=== PATIENT | male | born 1980 | race Caucasian/White ===

== ENCOUNTER 2016-07-03 12:00 | Emergency (ER) | payer OTHER | END 2016-07-03 14:45 | disposition left against medical advice (07) | LOC: UCCORT 12:00 | DX: S99.921A Unspecified injury of right foot, initial encounter (principal); X58.XXXA Exposure to other specified factors, initial encounter; Z88.0 Allergy status to penicillin; Z91.030 Bee allergy status; Z53.9 Procedure and treatment not carried out, unspecified reason ==

== ENCOUNTER 2017-04-05 16:54 | Emergency (ER) | payer OTHER ==
--- NOTE | 2017-04-05 18:01 | UC ---
HPI Febrile Illness - HPI Summary HPI Summary: 36 year old male presents with flu like symptoms. - History of Current Complaint Time Seen by Provider: 04/05/17 18:01 Hx Obtained From: Patient Onset/Duration: Started Hours Ago Timing: Constant Initial Severity: Moderate Current Severity: Moderate - Allergy/Home Medications Allergies/Adverse Reactions: Allergies Allergy/AdvReac Type Severity Reaction Status Date / Time Bee Venom Allergy Selling, Verified 04/05/17 18:12 Difficulty Breathing Penicillins Allergy Difficulty Verified 04/05/17 18:12 Breathing Home Medications: Home Medications Venlafaxine EXT RELEASE CAP* [Effexor Xr CAP*] 300 mg PO DAILY 04/05/17 [ History Confirmed 04/05/17] cloNIDine TAB* [Catapres 0.1 MG TAB*] 0.1 mg PO DAILY 04/05/17 [History Confirmed 04/05/17] PMH/Surg Hx/FS Hx/Imm Hx Previously Healthy: Yes - Surgical History Surgical History: Yes Surgery Procedure, Year, and Place: [place] x 4 as a child. Testicle Torsion Repair, 1991, [place]. Appendectomy, 2002, [place] - Family History Known Family History: Positive: None, Unknown - Social History Alcohol Use: Rare Substance Use Type: None Smoking Status (MU): Never Smoked Tobacco - Immunization History Most Recent Influenza Vaccination: none Review of Systems Constitutional: Negative Skin: Negative Eyes: Negative ENT: Sinus Congestion, Sinus Pain/Tenderness Respiratory: Negative Cardiovascular: Negative Gastrointestinal: Negative Genitourinary: Negative Motor: Negative Neurovascular: Negative Musculoskeletal: Negative Neurological: Negative Psychological: Negative All Other Systems Reviewed And Are Negative: Yes Physical Exam Triage Information Reviewed: Yes Appearance: Ill-Appearing Vital Signs Reviewed: Yes Eye Exam: Normal ENT: Positive: Nasal congestion, Nasal drainage, Sinus tenderness Dental Exam: Normal Neck exam: Normal Neck: Positive: 1 Respiratory Exam: Normal Cardiovascular Exam: Normal Abdominal Exam: Normal Musculoskeletal Exam: Normal Neurological Exam: Normal Psychological Exam: Normal Skin Exam: Normal Course/Dx - Diagnoses Clinic Provider Diagnoses: body aches. fever. chills. fatigue Discharge - Discharge Plan Condition: Stable Disposition: HOME Prescriptions: Azithromyxin RENALDO (NF) [Z-Renaldo (Zithromax) 250 mg tabs #6] 2 tab PO .TODAY, THEN 1 DAILY #6 tab Methylprednisolone [Medrol Dosepak 4 MG*] 4 mg PO .SEE RENALDO INSTRUCTION #21 tab Patient Education Materials: Sinusitis (ED) Forms: *Work Release Referrals: Reyna Parsons MD [Primary Care Provider] -
[2017-04-05 18:11] VITALS: BP 120/76
== END 2017-04-05 18:53 | disposition home or self-care (01) ==
LOC: UCCORT 16:54
DX: M79.1 Myalgia (principal); R50.9 Fever, unspecified; R53.83 Other fatigue; Z88.0 Allergy status to penicillin; Z91.030 Bee allergy status; Z90.89 Acquired absence of other organs
CPT/HCPCS: 87502; 99212; G0463

== ENCOUNTER 2017-08-31 16:25 | Emergency (ER) | payer OTHER ==
[2017-08-31] MEDS ORDERED: Tetan/Diph/Pertus SYR(Tdap)* 0.5 ML SYR(BOOSTRIX) use SYR IM ONE (18:07)
--- NOTE | 2017-08-31 18:10 | UC ---
Bite Injury/Animal HPI - HPI Summary HPI Summary: Patient comes in tonight with a dog bite to his right hand. He has a 5 mm laceration on the radial aspect of his wrist and a puncture wound to the dorsum of his hand. neuro motor and circulation intact distally there is no active bleeding. The dog belongs to a friend of his and is available for observation - History of Current Complaint Chief Complaint: UCBiteInjury Stated Complaint: CUT ON RT HAND Time Seen by Provider: 08/31/17 17:57 Hx Obtained From: Patient Severity Currently: Mild Severity Initially: Mild Pain Intensity: 3 Pain Scale Used: 0-10 Numeric Onset/Duration: Sudden Onset Type of Bite: Pet Has Animal Been Immunized?: Yes Character: Puncture Aggravating Factor(s): Other Alleviating Factor(s): Other Associated Signs And Symptoms: Positive: Negative Hx of Bite: Provoked by: - entered to owners home Animal Available for Observation: Yes Animal Control Notified: Yes - Allergies/Home Medications Allergies/Adverse Reactions: Allergies Allergy/AdvReac Type Severity Reaction Status Date / Time MS Bee Venom [Bee Venom] Allergy Selling, Verified 08/31/17 18:36 Difficulty Breathing MS Penicillins [Penicillins] Allergy Difficulty Verified 08/31/17 18:36 Breathing Penicillins Allergy Difficulty Verified 08/31/17 18:36 Breathing bee venom Allergy Difficulty Uncoded 08/31/17 18:36 Breathing PMH/Surg Hx/FS Hx/Imm Hx Previously Healthy: Yes Psychological History: Depression - Surgical History Surgical History: Yes Surgery Procedure, Year, and Place: [place] x 4 as a child. Testicle Torsion Repair, 1991, [place]. Appendectomy, 2002, [place] - Family History Known Family History: Positive: None, Unknown - Social History Occupation: Unemployed Lives: With Family Alcohol Use: Rare Substance Use Type: None Smoking Status (MU): Never Smoked Tobacco Type: Cigarettes Amount Used/How Often: 1 cig per day - Immunization History Most Recent Influenza Vaccination: none Review of Systems Constitutional: Negative Skin: Negative, Other - Puncture wound to the dorsum of the right hand 5 mm laceration radial aspect of wrist Eyes: Negative ENT: Negative Respiratory: Negative Cardiovascular: Negative Gastrointestinal: Negative Genitourinary: Negative Motor: Negative Neurovascular: Negative Musculoskeletal: Negative Neurological: Negative Psychological: Negative Is Patient Immunocompromised?: No All Other Systems Reviewed And Are Negative: Yes Physical Exam Triage Information Reviewed: Yes Appearance: Well-Appearing, No Pain Distress, Well-Nourished Vital Signs Reviewed: Yes Eye Exam: Normal Eyes: Positive: Conjunctiva Clear ENT Exam: Normal ENT: Positive: Normal ENT inspection, Hearing grossly normal. Negative: Trismus , Muffled voice, Hoarse voice, Sinus tenderness Dental Exam: Normal Neck exam: Normal Neck: Positive: Supple, Nontender Respiratory Exam: Normal Respiratory: Positive: Normal breath sounds, No respiratory distress Cardiovascular Exam: Normal Cardiovascular: Positive: RRR, Pulses Normal, Brisk Capillary Refill Musculoskeletal Exam: Normal Musculoskeletal: Positive: Strength Intact - We are an enema, ROM Intact, No Edema Neurological Exam: Normal Neurological: Positive: Alert, Muscle Tone Normal Psychological Exam: Normal Skin: Positive: Other - Puncture wound to the dorsum of the right hand. 5 mm laceration radial aspect of right wrist Re-Evaluation - Re-Evaluation First Eval Change: Improved - Patient refused x-ray, wrist wound closed with steri strip, hand wound with dsd, split applied to wrist to decrease movement and promote healing Bite Injury Course/Dx - Course Course Of Treatment: wrist splint, doxycycline, follow with pcp - Differential Dx/Diagnosis Provider Diagnoses: Dog bite right hand, update tetanus, 5mm laceration with steri closure Discharge - Sign-Out/Discharge Documenting (check all that apply): Discharge - Discharge Plan Condition: Stable Disposition: HOME Prescriptions: DOXYcycline CAP(*) [DOXYcycline 100MG CAP(*)] 100 mg PO BID 10 Days #20 cap Patient Education Materials: Diphtheria/Acellular Pertussis/Tetanus Booster Vaccine (By injection), Animal Bite (ED) Forms: *Work Release Referrals: WALE Leblanc [Primary Care Provider] - - Billing Disposition and Condition Condition: STABLE Disposition: HOME
[2017-08-31 18:21] VITALS: BP 136/85
== END 2017-08-31 18:55 | disposition home or self-care (01) ==
LOC: UCCORT 16:25
DX: S61.451A Open bite of right hand, initial encounter (principal); W54.0XXA Bitten by dog, initial encounter; Y92.9 Unspecified place or not applicable; Z23 Encounter for immunization; F17.210 Nicotine dependence, cigarettes, uncomplicated; Z88.0 Allergy status to penicillin
CPT/HCPCS: 12001; 90471; 90715; 99212; G0463

== ENCOUNTER 2017-09-14 18:39 | Emergency (ER) | payer OTHER ==
[2017-09-14 18:57] VITALS: BP 130/87
[2017-09-14] MEDS ORDERED: Lidocaine 2% W/EPI 1:100,000* 20 ML MDV INJ ONE (19:24)
--- NOTE | 2017-09-14 20:05 | UC ---
Laceration HPI - HPI Summary HPI Summary: 37 year old male with no significant pmhx here with right face laceration. Patient reports [place] and [place] he fell and piece of branch cut his face. Denies LOC or confusion and direct head trauma. Tetanus UTD - History Of Current Complaint Chief Complaint: UCLaceration Stated Complaint: FACIAL LAC - S/P FALL Time Seen by Provider: 09/14/17 19:15 Hx Obtained From: Patient Laceration Location: Face Mechanism Of Injury: FB Potential Onset/Duration: Sudden Onset Severity: Mild Pain Intensity: 2 Pain Scale Used: 0-10 Numeric Aggravating Factors: Movement - Allergies/Home Medications Allergies/Adverse Reactions: Allergies Allergy/AdvReac Type Severity Reaction Status Date / Time Penicillins Allergy Difficulty Verified 09/14/17 18:57 Breathing bee venom Allergy Difficulty Uncoded 09/14/17 18:57 Breathing PMH/Surg Hx/FS Hx/Imm Hx Previously Healthy: Yes - Surgical History Surgical History: Yes Surgery Procedure, Year, and Place: [place] x 4 as a child. Testicle Torsion Repair, 1991, [place]. Appendectomy, 2002, [place] - Family History Known Family History: Positive: None, Unknown - Social History Alcohol Use: Rare Substance Use Type: None Smoking Status (MU): Former Smoker Type: Cigarettes Amount Used/How Often: 1 cig per day - Immunization History Most Recent Influenza Vaccination: none Most Recent Tetanus Shot: 08/31/17 Review of Systems Constitutional: Negative Skin: Negative Eyes: Negative ENT: Negative Respiratory: Negative Cardiovascular: Negative Gastrointestinal: Negative Genitourinary: Negative Motor: Negative Neurovascular: Negative Musculoskeletal: Negative Neurological: Negative Psychological: Negative All Other Systems Reviewed And Are Negative: Yes Physical Exam Triage Information Reviewed: Yes Appearance: Well-Appearing, No Pain Distress Vital Signs: Initial Vital Signs Temp 36.1 C 09/14/17 18:54 Pulse 91 09/14/17 18:54 Resp 17 09/14/17 18:54 BP 130/87 09/14/17 18:54 Pulse Ox 98 09/14/17 18:54 Eye Exam: Normal ENT Exam: Normal Dental Exam: Normal Neck exam: Normal Respiratory Exam: Normal Cardiovascular Exam: Normal Abdominal Exam: Normal Musculoskeletal Exam: Normal Skin: Positive: Other - 5 cm laceration over the right cheek with 2 cm superficial and other remaining 3cm is 0.5cm deep laceration with visible FB, SILT in V1-V3, motor intact No loose teeth Laceration Repair - Laceration Repair 8 Description: Linear - Neuro exam before and after suture repair remained the same (except over anesthesized area decreased sensation) Laceration Size After Repair: Length (cm) - 5cm with 3cm deep and 2cm deep Contamination/FB Removal: Piece of wood removed before and after irrigation. Irrigated more after no more visible FB Modified For Repair: No Type Injection: Local Anesthesia Used: 2.0% Lido Cleansing Completed Via Routine Prep: Yes Irrigation With Pressure Irrigation Device: Yes Suture Of: Skin Suture Type: Prolene - 5.0 Laceration Course/Dx - Differential Dx - Laceration/Wound Differental Diagnoses: Abrasion, Foreign Body, Laceration Provider Diagnoses: Laceration repair and foreign body removal. PPX with abx. Suture removal over on 09/19 Discharge - Sign-Out/Discharge Documenting (check all that apply): Discharge/Admit/Transfer - Discharge Plan Condition: Good Disposition: HOME Prescriptions: Levofloxacin TAB* [Levaquin TAB*] 750 mg PO DAILY 5 Days #5 tab Patient Education Materials: Laceration (ED), Laceration (DC), Care For Your Stitches (DC), Care For Your Stitches (ED) Forms: *Work Release Referrals: WALE Leblanc [Primary Care Provider] - Additional Instructions: Keep wound dry and clean. No water for 24 hours. No scrubbing until removal. Return to the for suture removal 09/19 - Billing Disposition and Condition Condition: GOOD Disposition: HOME Images Head: 1 - 5cm laceration (0.5cm deep over 3cm segment and 2cm suture) Sparing the vermilion border
== END 2017-09-14 20:27 | disposition home or self-care (01) ==
LOC: UCCORT 18:39
DX: S01.81XA Laceration without foreign body of other part of head, initial encounter (principal); W19.XXXA Unspecified fall, initial encounter; Y93.02 Activity, running; Y92.9 Unspecified place or not applicable
CPT/HCPCS: 12013; 99212; G0463

== ENCOUNTER 2018-07-09 13:42 | Emergency (ER) | payer OTHER ==
[2018-07-09 14:41] VITALS: BP 139/79
[2018-07-09] MEDS ORDERED: Albuterol/Ipratropium NEB.SOL* Albuterol 2.5 MG/Ipratropium 0.5 MG 3 ML INH ONE (14:45)
[2018-07-09] MEDS ORDERED: predniSONE TAB* 20 MG PO ONE (14:45)
--- NOTE | 2018-07-09 15:19 | UC ---
UC General HPI - HPI Summary HPI Summary: pt c/o 10 day hx worsening cough, congestion, sob and wheezing. began as a uri that moved down. + hx asthma. using neb. subjective f/c's - History of Current Complaint Chief Complaint: UCRespiratory Stated Complaint: CONGESTION,COUGH,UPPER RESPITORY Time Seen by Provider: 07/09/18 14:38 Hx Obtained From: Patient Onset/Duration: Gradual Onset Timing: Constant Pain Intensity: 0 Associated Signs & Symptoms: Positive: Cough, Fever, SOB, Wheezing. Negative: Chest Pain - Allergy/Home Medications Allergies/Adverse Reactions: Allergies Allergy/AdvReac Type Severity Reaction Status Date / Time Penicillins Allergy Difficulty Verified 07/09/18 14:41 Breathing bee venom Allergy Difficulty Uncoded 07/09/18 14:41 Breathing Home Medications: Home Medications Albuterol HFA INHALER* [Ventolin HFA Inhaler*] 2 puff INH Q6H PRN 07/09/18 [ History Confirmed 07/09/18] PMH/Surg Hx/FS Hx/Imm Hx Respiratory History: Asthma - Surgical History Surgical History: Yes Surgery Procedure, Year, and Place: [place] x 4 as a child. Testicle Torsion Repair, 1991, [place]. Appendectomy, 2002, [place] - Family History Known Family History: Positive: None, Unknown - Social History Lives: With Family Alcohol Use: Rare Substance Use Type: None Smoking Status (MU): Former Smoker Type: Cigarettes Amount Used/How Often: 1 cig per day Household Exposure Type: Cigarettes - Immunization History Most Recent Influenza Vaccination: none Most Recent Tetanus Shot: 08/31/17 Review of Systems All Other Systems Reviewed And Are Negative: Yes Constitutional: Positive: Fever, Chills Skin: Positive: Negative Eyes: Positive: Negative ENT: Positive: Negative Respiratory: Positive: Shortness Of Breath, Cough Cardiovascular: Positive: Negative Gastrointestinal: Positive: Negative Genitourinary: Positive: Negative Motor: Positive: Negative Neurovascular: Positive: Negative Musculoskeletal: Positive: Negative Neurological: Positive: Negative Psychological: Positive: Negative Physical Exam Triage Information Reviewed: Yes Appearance: Well-Appearing Vital Signs: Initial Vital Signs Temp 99.0 F 07/09/18 14:38 Pulse 105 07/09/18 14:38 Resp 21 07/09/18 14:38 BP 139/79 07/09/18 14:38 Pulse Ox 98 07/09/18 14:38 Vital Signs Reviewed: Yes Eyes: Positive: Conjunctiva Clear ENT: Positive: Pharynx normal, TMs normal. Negative: Nasal congestion, Nasal drainage Neck: Positive: Supple, Nontender, No Lymphadenopathy Respiratory: Positive: No respiratory distress, Decreased breath sounds, Wheezing Cardiovascular: Positive: RRR, No Murmur Abdomen Description: Positive: Nontender, No Organomegaly, Soft Bowel Sounds: Positive: Present Musculoskeletal: Positive: ROM Intact Neurological: Positive: Alert Psychological: Positive: Age Appropriate Behavior Skin Exam: Normal Diagnostics - Radiology No standard instances Radiology Interpretation Completed By: Radiologist - cxr=NO ACTIVE CARDIOPULMONARY DISEASE. Re-Evaluation - Re-Evaluation First Eval Re-Evaluation Time: 15:21 Change: Improved - improved aeration and no wheezing post tx. Course/Dx - Differential Dx - Multi-Symptom Differential Diagnoses: Other - asthma, pneumonia - Diagnoses Provider Diagnosis: Asthma Discharge - Sign-Out/Discharge Documenting (check all that apply): Patient Departure All imaging exams completed and their final reports reviewed: No Studies - Discharge Plan Condition: Stable Disposition: HOME Prescriptions: Albuterol 2.5MG/3ML (0.083%)* [Ventolin 2.5 MG/3 ML NEB.MIGUEL*] 2.5 mg INH Q6H #1 box Azithromycin TAB* [Zithromax TAB (Z-RENALDO) 250 mg #6 tabs] 2 tab PO .TODAY, THEN 1 DAILY #1 renaldo predniSONE [Prednisone 20 MG TAB] 40 mg PO DAILY 5 Days #10 tablet Patient Education Materials: Asthma (DC) Referrals: Leelee Raza MD [Primary Care Provider] - 5 Days - Billing Disposition and Condition Condition: STABLE Disposition: Home
== END 2018-07-09 15:31 | disposition home or self-care (01) ==
LOC: UCCORT 13:42
DX: J45.909 Unspecified asthma, uncomplicated (principal); Z88.0 Allergy status to penicillin; Z91.030 Bee allergy status; Z79.899 Other long term (current) drug therapy; Z87.891 Personal history of nicotine dependence
CPT/HCPCS: 71046; 99212; A9270-GY; G0463; J7512

== ENCOUNTER 2018-09-21 20:55 | Emergency (ER) | payer OTHER ==
[2018-09-21 21:16] VITALS: BP 145/80
[2018-09-21] MEDS ORDERED: Albuterol 2.5 MG/3 ML NEB.SOL* (0.083%) INH ONE (21:19)
[2018-09-21] MEDS ORDERED: predniSONE TAB* 20 MG PO ONE (21:19)
--- NOTE | 2018-09-21 21:21 | UC ---
UC General HPI - HPI Summary HPI Summary: PT IS C/O A 2 WEEK HX OF WORSENING COUGH WITH CONGESTION AND WHEEZING. MUCH WORSE PAST 3 DAYS. + HX ASTHMA. NO CP OR FEVER. - History of Current Complaint Stated Complaint: ASTHMA/COUGH/WHEEZING Time Seen by Provider: 09/21/18 21:13 Hx Obtained From: Patient Onset/Duration: Gradual Onset Timing: Constant Aggravating: SECOND HAND SMOKE - Allergy/Home Medications Allergies/Adverse Reactions: Allergies Allergy/AdvReac Type Severity Reaction Status Date / Time Penicillins Allergy Difficulty Verified 09/21/18 21:07 Breathing bee venom Allergy Difficulty Uncoded 09/21/18 21:07 Breathing Home Medications: Home Medications Ibuprofen TAB* [Advil TAB*] 400 mg PO Q6H PRN 09/21/18 [History Confirmed ] PMH/Surg Hx/FS Hx/Imm Hx Respiratory History: Asthma Psychological History: Depression - Surgical History Surgical History: Yes Surgery Procedure, Year, and Place: [place] x 4 as a child. Testicle Torsion Repair, 1991, [place]. Appendectomy, 2002, [place] - Family History Known Family History: Positive: None, Unknown - Social History Occupation: Employed Full-time Alcohol Use: Rare Substance Use Type: None Smoking Status (MU): Former Smoker Type: Cigarettes Amount Used/How Often: 1 cig per day Household Exposure Type: Cigarettes - Immunization History Most Recent Influenza Vaccination: none Most Recent Tetanus Shot: 08/31/17 Review of Systems All Other Systems Reviewed And Are Negative: Yes Respiratory: Positive: Shortness Of Breath, Cough Physical Exam Triage Information Reviewed: Yes Appearance: Well-Appearing Vital Signs Reviewed: Yes Eyes: Positive: Conjunctiva Clear ENT: Positive: Normal ENT inspection Neck: Positive: Supple, Nontender, No Lymphadenopathy Respiratory: Positive: No respiratory distress, Decreased breath sounds, Wheezing - FEW SCATTERED Cardiovascular: Positive: RRR, No Murmur Abdomen Description: Positive: Nontender, No Organomegaly, Soft Bowel Sounds: Positive: Present Musculoskeletal: Positive: ROM Intact Neurological: Positive: Alert Psychological: Positive: Age Appropriate Behavior Skin Exam: Normal Re-Evaluation - Re-Evaluation First Eval Re-Evaluation Time: 21:53 Change: Improved - MUCH BETTER AERATION. STILL SOME WHEEZING. NO FOCAL CRACKLES. Course/Dx - Course Course Of Treatment: BP IS ILLNESS/VISIT RELATED. - Differential Dx - Multi-Symptom Differential Diagnoses: Other - NON TOXIC. NO CONCERN FOR PNEUMONIA - Diagnoses Provider Diagnosis: Acute asthma exacerbation Discharge - Sign-Out/Discharge Documenting (check all that apply): Patient Departure All imaging exams completed and their final reports reviewed: No - Discharge Plan Condition: Stable Disposition: HOME Prescriptions: predniSONE [Prednisone 20 MG TAB] 40 mg PO DAILY 4 Days #8 tablet Patient Education Materials: Asthma (ED) Referrals: Leelee Raza MD [Primary Care Provider] - 5 Days Additional Instructions: USE YOUR ALBUTEROL NEBULIZER OR INHALER EVERY 6 HOURS. GO TO THE ER FOR ANY WORSENING. - Billing Disposition and Condition Condition: STABLE Disposition: Home
--- NOTE | 2018-09-22 08:03 | UC ---
- Progress Note Progress Note: Chart marked for x-ray review. No study ordered. Course/Dx - Diagnoses Provider Diagnoses: Acute asthma exacerbation Discharge - Sign-Out/Discharge Documenting (check all that apply): Post-Discharge Follow Up All imaging exams completed and their final reports reviewed: No Studies - Discharge Plan Condition: Stable Disposition: HOME Prescriptions: predniSONE [Prednisone 20 MG TAB] 40 mg PO DAILY 4 Days #8 tablet Patient Education Materials: Asthma (ED) Referrals: Leelee Raza MD [Primary Care Provider] - 5 Days Additional Instructions: USE YOUR ALBUTEROL NEBULIZER OR INHALER EVERY 6 HOURS. GO TO THE ER FOR ANY WORSENING. - Billing Disposition and Condition Condition: STABLE Disposition: Home
== END 2018-09-21 22:01 | disposition home or self-care (01) ==
LOC: UCCORT 20:55
DX: J45.901 Unspecified asthma with (acute) exacerbation (principal); R05 Cough; R09.89 Other specified symptoms and signs involving the circulatory and respiratory systems; F32.9 Major depressive disorder, single episode, unspecified; Z87.891 Personal history of nicotine dependence; Z88.0 Allergy status to penicillin; Z91.030 Bee allergy status
CPT/HCPCS: 99212; G0463; J7512